=== PATIENT | male | born 1980 | race Caucasian/White ===

== ENCOUNTER 2025-01-21 17:32 | Emergency (ER) | payer OTHER ==
[~2025-01-21] VITALS: Ht 177.8 cm; Wt 85.3 kg
[2025-01-21 17:58] VITALS: PULSE 72; RESP 18; TEMP 99; O2SAT 99
[2025-01-21] MEDS ORDERED: DOXYCYCLINE HY100 MG PO (19:13)
== END 2025-01-21 19:36 | disposition home or self-care (01) ==
LOC: ER 19:03
DX: R30.0 Dysuria (principal); N34.2 Other urethritis; F17.210 Nicotine dependence, cigarettes, uncomplicated
CPT/HCPCS: 99283